=== PATIENT | male | born 1950 | race American Indian/Alaskan Native ===

== ENCOUNTER 2021-07-31 08:43 | Outpatient (CLI) | payer MEDICARE ==
--- NOTE | 2021-07-31 13:13 | Nuclear Medicine Report ---
NUCLEAR MEDICINE BONE SCAN, WHOLE BODY INDICATION / CLINICAL INFORMATION: PROSTATE CANCER C61. TECHNIQUE: 26.3 mCi of Tc-99m MDP were injected IV. Images were obtained of the whole body. COMPARISON: No relevant prior imaging study available. FINDINGS: ARTICULAR STRUCTURES: Mild, relatively symmetric, periarticular activity which is likely degenerative . SKELETAL LESIONS: None. SOFT TISSUES: Normal. KIDNEYS: Normal. ADDITIONAL FINDINGS: None. IMPRESSION: 1. No significant scintigraphic abnormality. Signer Name: Holden Sainz MD Signed: 07/31/2021 1:08 PM Workstation Name: [id number]
== END 2021-07-31 08:44 | disposition home or self-care (01) ==
LOC: NM 08:43
PROVIDERS: ATTEND Urology
DX: C61 Malignant neoplasm of prostate (principal)
CPT/HCPCS: 78306; A9503